=== PATIENT | male | born 1995 | race Caucasian/White ===

== ENCOUNTER 2021-11-16 16:58 | Emergency (ER) | payer BC, SELFPAY ==
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
[2021-11-16 17:08] VITALS: BP 128/81; PULSE 88; RESP 16; TEMP 36.7; O2SAT 97
[2021-11-16 17:25] VITALS: BP 128/81; PULSE 88; RESP 16; TEMP 36.7; O2SAT 97
[2021-11-16] MEDS: cefTRIAXone 500 MG, LIDOCAINE HCL 1% LOCAL INJ 1 ML IM (18:23)
== END 2021-11-16 18:48 | disposition home or self-care (01) ==
PROVIDERS: Emergency Provider Nurse Practitioner
DX: T79.7XXA Traumatic subcutaneous emphysema, initial encounter (principal); X58.XXXA Exposure to other specified factors, initial encounter; S51.832A Puncture wound without foreign body of left forearm, initial encounter; W45.8XXA Other foreign body or object entering through skin, initial encounter; Z23 Encounter for immunization
CPT/HCPCS: 73090; 90471; 99213; G0463; J0696